=== PATIENT | female | born 1950 | race Caucasian/White ===

== ENCOUNTER 2017-12-12 11:13 | Day surgery (SDC) | payer OTHER ==
[2017-12-10 16:50] VITALS: BMI 37.3
[2017-12-12] MEDS ORDERED: MIDAZOLAM HCL 2 MG/2 ML SINGLE DOSE VIAL ONE (13:22)
[2017-12-12] MEDS ORDERED: PROPOFOL 20 ML ONE (13:55)
[2017-12-12] MEDS ORDERED: ROCURONIUM BROMIDE 50 MG/5 ML VIAL ONE (13:55)
[2017-12-12] MEDS ORDERED: fentaNYL CITRATE 250 MCG/5 ML VIAL ONE (13:56)
[2017-12-12] MEDS ORDERED: SUCCINYLCHOLINE CHLORIDE 200 MG/10 ML VIAL ONE (13:59)
[2017-12-12] MEDS ORDERED: CLINDAMYCIN PHOSPHATE 600 MG/4 ML VIAL IVPB ONE (14:06)
[2017-12-12] MEDS ORDERED: GLYCOPYRROLATE 0.2 MG/1 ML VIAL ONE ×2 (16:44)
[2017-12-12] MEDS ORDERED: NEOSTIGMINE METHYLSULFATE 0.5 MG/ML - 10 ML MDV ONE (16:44)
[2017-12-12] MEDS ORDERED: ONDANSETRON 4 MG/2 ML VIAL IVPUSH PRN (17:07)
[2017-12-12] MEDS ORDERED: PROMETHAZINE HCL 25 MG/1 ML VIAL IVPUSH PRN (17:07)
[2017-12-12] MEDS ORDERED: oxyCODONE HCL 5 MG TABLET PO PRN (17:07)
[2017-12-12] MEDS ORDERED: ALBUTEROL SO4 0.083% IH SOL 2.5 MG/3 ML VIAL.NEB. NEB PRN (17:13)
--- NOTE | 2017-12-12 17:13 | OP ---
Operative Note - Note: Operative Date: 12/12/17 Pre-Operative Diagnosis: bilateral macromastia Operation: bilateral breast reduction Surgeon: Trav Morgan Interstate Bus Driver: Avril Sparrwo Anesthesiologist/INVASIVE CARDIOLOGIST: Jeffrey Hollingsworth Anesthesia: General Specimens Removed: b/l breast tissue Estimated Blood Loss (mls): 100 Blood Volume Replaced (mls): 1,600 Operative Report Dictated: Yes
[2017-12-12] MEDS ORDERED: ELECTROLYTE-148 SOLN 1,000 ML IV SCH (17:15)
[2017-12-12] MEDS ORDERED: ONDANSETRON 4 MG/2 ML VIAL ONE ×2 (17:26→19:38)
--- NOTE | 2017-12-12 17:53 | OP ---
Operative Note - Note: Operative Date: 12/12/17 Pre-Operative Diagnosis: Symptomatic Macromastia Operation: Bilateral Reduction Mammaplasty Post-Operative Diagnosis: Same as Pre-op Surgeon: Trav Morgan Retail Greeting Card Merchandiser: Avril Sparrow Anesthesiologist/SUMMER LAW CLERK: Jeffrey Hollingsworth Anesthesia: General Specimens Removed: Breast Tissue- Left 543gm, Right 523gm Operative Report Dictated: Yes
--- NOTE | 2017-12-12 18:19 | SURG ---
Surgery Telephone Worker Note Telephone Worker: Avril Sparrow PA-C Date of Service: 12/12/17 Diagnosis: Symptomatic Macromastia Procedure: Bilateral Reduction Mammaplasty I was present for the entirety of the operative procedure. For further detail, please refer to operative report. Visit type - Case Type Case Type: Scheduled Admission - Emergency Emergency Visit: No - New patient This patient is new to me today: Yes Date on this admission: 12/12/17
[2017-12-12 18:38] VITALS: TEMP 98.2
[2017-12-12] MEDS ORDERED: ONDANSETRON 4 MG/2 ML VIAL IVPUSH ONE (19:40)
[2017-12-12 20:17] VITALS: BP 115/54; PULSE 71
--- NOTE | 2017-12-13 09:27 | OP ---
DATE OF OPERATION: 12/12/2017 PREOPERATIVE DIAGNOSIS: Symptomatic macromastia, bilateral. POSTOPERATIVE DIAGNOSIS: Symptomatic macromastia, bilateral. PROCEDURE PERFORMED: Bilateral reduction mammoplasty. SURGEON: Trav Danielson MD DIRECTOR TRANSLATION: HARISH Villa ANESTHESIA: General via endotracheal tube, Jeffrey Hollingsworth MD. BRIEF HISTORY: The patient is a 67-year-old female who has a long history of neck, back, and shoulder pain with from her bra straps. Most significantly, she has unrelenting intertrigo in both inframammary folds. She now presents for reduction mammoplasty. PROCEDURE: The patient was on the operating table in the supine position, and general anesthesia was administered by Dr. Hollingsworth. The area of the chest was prepped and draped in usual sterile fashion. Markings were made on the patient preoperatively in the standing position, and these markings were now used as a guide for surgery. The right breast was addressed first. An inferiorly-based pedicle was designed approximately 7 cm in width, and using a tourniquet at the base of the right breast, this area was de-epithelialized. A 52-mm cookie cutter was used to create a circular incision about the nipple-areolar complex. Once de-epithelialized, the pedicle was created by dissecting medial, laterally, and superiorly to the pedicle, and tissue in these 3 quadrants was then excised. Total specimen removed from the right breast was 523 g. The superior flaps were undermined to the level of approximately the second rib, and wounds were temporarily closed, closing sutures with 2-0 silk sutures. Hemostasis was achieved with electrocautery, and the wounds were irrigated with saline solution. A Gissel drain was placed exiting the end of the inframammary fold, encircling around the superior border of the pedicle to the left side. Closure was then performed in layered fashion. Deep tissues were closed with No. 3-0 and 4-0 Biosyn suture in interrupted buried fashion. Skin was then closed circumareolar and vertical limbs using a 4-0 V-Loc 90 suture in continuous intradermal fashion, and the inframammary wound was closed using a 4-0 Prolene suture in a continuous subcuticular fashion. All wounds were then secured with Steri-Strips. The inframammary fold incision at the lateral end was closed around the Gissel drain, and these sutures will be tightened once the drain is removed tomorrow. A similar procedure was performed on the left breast where the total excision was 543 g. The patient was moved into the sitting position to confirm symmetry, then moved back to the supine position before closure. Sterile dressings were then applied after the wounds were secured with Steri-Strips. Patient was awoken from anesthesia without any difficulty, and she was taken from the operating room to the recovery room in satisfactory condition, having tolerated the procedure well. TRAV DANIELSON M.D. [id number]
--- NOTE | 2017-12-17 10:03 | PATH ---
Surgical Pathology Report Patient Name: LISA RODRIGEZ [facility]. Rec. #: [id number] /Age/Gender: 1950 (Age: 67) / F Account: [id number] Location: [facility] SURGICAL Taken: 12/12/2017 Received: 12/13/2017 Reported: 12/17/2017 Physicians: Trav Morgan M.D. Specimen(s) Received A: RIGHT BREAST TISSUE B: LEFT BREAST TISSUE Clinical History Bilateral macromastia Final Diagnosis A. BREAST, RIGHT, REDUCTION MAMMOPLASTY: BENIGN BREAST TISSUE WITH FIBROCYSTIC CHANGES INCLUDING STROMAL FIBROSIS, MICROCYSTS AND ASSOCIATED MICROCALCIFICATIONS. SKIN WITHOUT SIGNIFICANT PATHOLOGIC FINDINGS. B. BREAST, LEFT, REDUCTION MAMMOPLASTY: BENIGN BREAST TISSUE WITH FIBROCYSTIC CHANGES INCLUDING STROMAL FIBROSIS, MICROCYSTS , USUAL DUCTAL HYPERPLASIA, AND ASSOCIATED RARE MICROCALCIFICATIONS. SKIN WITHOUT SIGNIFICANT PATHOLOGIC FINDINGS. Electronically Signed Bertha Del Real M.D. Gross Description A. Received in formalin labeled "right breast tissue 523 g," is a 17.0 x 15.5 x 5.5 cm aggregate of multiple cook-yellow, irregular, unoriented portions of fibroadipose tissue and cook, unremarkable skin. Sectioning reveals multifocal white fibrous tissue. Cdl Bulk Driver sections are submitted in 5 cassettes. B. Received in formalin labeled "left breast tissue 543 g," is a 15.0 x 14.5 x 5.0 cm aggregate of multiple cook-yellow, irregular, unoriented portions of fibroadipose tissue and cook, unremarkable skin. Sectioning reveals multifocal white fibrous tissue. Cdl Bulk Driver sections are submitted in 6 cassettes. /12/13/201712/13/2017
== END 2017-12-12 20:15 | disposition home or self-care (01) ==
LOC: JASU-SURG 11:13
PROVIDERS: ATTEND Plastic Surgery
PROC: 0HBV0ZZ Excision of Bilateral Breast, Open Approach (ICD-10-PCS; principal; 2017-12-12 12:30)
DX: N62 Hypertrophy of breast (principal); M54.89 Other dorsalgia; M25.512 Pain in left shoulder; M25.511 Pain in right shoulder; M54.2 Cervicalgia
CPT/HCPCS: 88305-TC